=== PATIENT | female | born 1930 | race Caucasian/White ===

== ENCOUNTER 2016-12-18 20:23 | Inpatient (IN) | payer MEDICARE, BC ==
[~2016-12-18] VITALS: Ht 139.7 cm; Wt 42.5 kg
[~2016-12-18 20:23] MED LIST: ALLEGRA60 MG PO; COREG 6.256.25 MG/TA PO; COZAAR 25MG25 MG/TAB PO; LASIX 40MG TABL40 MG PO; PREMARIN 0.60.625 MG PO; PRILOSEC 20MG20 MG PO
[2016-12-18] MEDS ORDERED: FERRO-TIME325 MG PO (23:07)
[2016-12-18] MEDS ORDERED: SEROQUEL 2525 MG/TAB PO (23:09)
[2016-12-18 23:10] LABS: BASO % 0.2 % (0.0-2.0); EOS % 0.1 % (0-4.0); GRAN # 9.9 (1.4-6.5); GRAN % 76.3 % (42.2-75.2); LYMPH # 2.3 (1.2-3.4); LYMPH % 17.5 % (20.0-51.0); MEAN CELL VOLUME 92 fl (80.0-100.0); MEAN CORPUSCULAR HGB CONC 31 g/dl (33.0-37.0); MEAN PLATELET VOLUME 10.7 fl (7.4-10.4); MONO # 0.7 (0.1-0.6); MONO % 5.6 % (1.7-9.3); PLATELET COUNT 202 K/mm3 (130-400); RED BLOOD COUNT 3.87 M/mm3 (4.10-5.30); REDCELL DISTRIBUTION WIDTH-CV 14.6 % (11.5-14.5); WHITE BLOOD COUNT 12.9 K/mm3 (4.8-10.8)
[2016-12-18] MEDS ORDERED: ZYPREXA7.5 MG PO ×2 (23:11)
[2016-12-18 23:12] LABS: HEMATOCRIT 35.7 % (37.0-47.0); HEMOGLOBIN 11.1 g/dl (12.5-16.0); MEAN CORPUSCULAR HEMOGLOBIN 29 pg (27.0-31.0)
[2016-12-18 23:15] LABS: INR 1.1 (0.8-3.0); PROTHROMBIN TIME 11.9 SECONDS (9.7-12.8)
[2016-12-18] MEDS ORDERED: DULCOLAX STOOL100 MG PO (23:15)
[2016-12-18] MEDS ORDERED: SENNO8.6 MG PO (23:17)
[2016-12-18] MEDS ORDERED: NORCO 325 MG-51 TAB PO ×2 (23:18→23:24)
[2016-12-18] MEDS ORDERED: ATIVAN 0.50.5 MG/TAB PO (23:20)
[2016-12-18 23:21] LABS: ADJUSTED CALCIUM 8.9 mg/dL (8.4-10.2); ALBUMIN 3.7 gm/dL (3.5-5.0); BILIRUBIN,TOTAL 0.8 mg/dL (0.0-1.0); CALCIUM 8.7 mg/dL (8.4-10.2); CREATININE, serum 1.25 mg/dL (0.52-1.25); POTASSIUM 5.1 mmol/L (3.4-5.0); TOTAL PROTEIN 7.4 gm/dL (6.4-8.2)
[2016-12-18] MEDS ORDERED: DULCOLAX S10 MG/SUPP RC (23:22)
[2016-12-18] MEDS ORDERED: MILK OF MA1200 MG/5 PO (23:23)
[2016-12-18] MEDS ORDERED: ROXICODONE 55 MG/TAB PO (23:25)
[2016-12-18] MEDS ORDERED: TYLENOL 325MG325 MG PO (23:26)
[2016-12-19] VITALS (17 sets, daily range): BP systolic 134–182; BP diastolic 37–91; PULSE 62–80; TEMP 96.8–98.7
[2016-12-19 00:15] LABS: PH 5 (5-8); SQUAMOUS EPITHELIAL 0-2 /hpf; URINE APPEARANCE Clear; URINE BACTERIA None Seen /hpf; URINE BILIRUBIN Negative (NEGATIVE); URINE BLOOD Negative (NEGATIVE); URINE COLOR Yellow; URINE GLUCOSE Negative (NEGATIVE); URINE KETONE Trace (NEGATIVE); URINE RBC 0-2 /hpf; URINE UROBILINOGEN Negative (NEGATIVE); URINE WBC 0-2 /hpf
[2016-12-20] VITALS (7 sets, daily range): BP systolic 114–152; BP diastolic 43–68; PULSE 66–95; TEMP 97.7–98.5
[2016-12-20 07:09] LABS: MEAN CELL VOLUME 92 fl (80.0-100.0); MEAN CORPUSCULAR HGB CONC 32 g/dl (33.0-37.0); MEAN PLATELET VOLUME 11.3 fl (7.4-10.4); PLATELET COUNT 171 K/mm3 (130-400); RED BLOOD COUNT 3.18 M/mm3 (4.10-5.30); REDCELL DISTRIBUTION WIDTH-CV 14.5 % (11.5-14.5); WHITE BLOOD COUNT 13.9 K/mm3 (4.8-10.8)
[2016-12-20 07:22] LABS: CALCIUM 7.9 mg/dL (8.4-10.2); CREATININE, serum 1.08 mg/dL (0.52-1.25); MAGNESIUM 2.4 mg/dL (1.6-2.3); PHOSPHOROUS 3.3 mg/dL (2.5-4.5); POTASSIUM 4.3 mmol/L (3.4-5.0)
[2016-12-20 07:53] LABS: HEMATOCRIT 29.1 % (37.0-47.0); HEMOGLOBIN 9.2 g/dl (12.5-16.0); MEAN CORPUSCULAR HEMOGLOBIN 29 pg (27.0-31.0)
[2016-12-21] VITALS (8 sets, daily range): BP systolic 93–160; BP diastolic 29–60; PULSE 44–89; TEMP 97.6–98.3
[2016-12-21 08:40] LABS: BASO % 0.2 % (0.0-2.0); EOS % 0.1 % (0-4.0); GRAN # 15.6 (1.4-6.5); GRAN % 81.5 % (42.2-75.2); LYMPH # 1.9 (1.2-3.4); LYMPH % 9.8 % (20.0-51.0); MEAN CELL VOLUME 91 fl (80.0-100.0); MEAN CORPUSCULAR HGB CONC 32 g/dl (33.0-37.0); MONO # 1.4 (0.1-0.6); MONO % 7.4 % (1.7-9.3); PLATELET COUNT 151 K/mm3 (130-400); RED BLOOD COUNT 3.01 M/mm3 (4.10-5.30); REDCELL DISTRIBUTION WIDTH-CV 14.6 % (11.5-14.5); WHITE BLOOD COUNT 19.2 K/mm3 (4.8-10.8)
[2016-12-21 08:41] LABS: HEMATOCRIT 27.5 % (37.0-47.0); HEMOGLOBIN 8.7 g/dl (12.5-16.0); MEAN CORPUSCULAR HEMOGLOBIN 29 pg (27.0-31.0)
[2016-12-21 22:44] LABS: PH 5 (5-8); SQUAMOUS EPITHELIAL 0-2 /hpf; URINE APPEARANCE Hazy; URINE BACTERIA Rare /hpf; URINE BILIRUBIN Negative (NEGATIVE); URINE BLOOD Negative (NEGATIVE); URINE COLOR Yellow; URINE GLUCOSE Negative (NEGATIVE); URINE KETONE Negative (NEGATIVE); URINE UROBILINOGEN Negative (NEGATIVE); URINE WBC 0-2 /hpf
[2016-12-22 00:22] VITALS: BP 109/49; PULSE 64; TEMP 98.7
[2016-12-22 06:03] VITALS: BP 159/40; PULSE 66; TEMP 97.6
[2016-12-22 07:30] VITALS: BP 154/39; PULSE 63; TEMP 98.7
[2016-12-22 08:30] LABS: HEMATOCRIT 26.3 % (37.0-47.0); HEMOGLOBIN 8.3 g/dl (12.5-16.0)
[2016-12-22 10:13] VITALS: BP 135/31; PULSE 66; TEMP 97.8
[2016-12-22] MEDS ORDERED: PRINIVIL2.5 MG PO (10:17)
[2016-12-22] MEDS ORDERED: XARELTO10 MG PO (10:17)
[2016-12-22 10:21] LABS: BASO % 0.2 % (0.0-2.0); EOS # 0.1 (0.0-0.7); EOS % 0.4 % (0-4.0); GRAN # 11.3 (1.4-6.5); GRAN % 79.9 % (42.2-75.2); LYMPH # 1.7 (1.2-3.4); LYMPH % 12.2 % (20.0-51.0); MEAN CELL VOLUME 93 fl (80.0-100.0); MEAN CORPUSCULAR HGB CONC 31 g/dl (33.0-37.0); MEAN PLATELET VOLUME 11.8 fl (7.4-10.4); MONO % 6.9 % (1.7-9.3); PLATELET COUNT 153 K/mm3 (130-400); RED BLOOD COUNT 2.87 M/mm3 (4.10-5.30); REDCELL DISTRIBUTION WIDTH-CV 14.3 % (11.5-14.5); WHITE BLOOD COUNT 14.1 K/mm3 (4.8-10.8)
[2016-12-22 10:22] LABS: HEMATOCRIT 26.7 % (37.0-47.0); HEMOGLOBIN 8.3 g/dl (12.5-16.0); MEAN CORPUSCULAR HEMOGLOBIN 29 pg (27.0-31.0)
[2016-12-22 12:24] VITALS: BP 135/31; PULSE 66; TEMP 97.8
== END 2016-12-22 14:00 | DRG 480 ==
LOC: SURG 20:23
PROVIDERS: Family Medicine; Internal Medicine; Nurse Practitioner Family; Orthopaedic Surgery; Physician Assistant
PROC: 0QS606Z Reposition Right Upper Femur with Intramedullary Internal Fixation Device, Open Approach (ICD-10-PCS; principal; 2016-12-19 12:00)
DX: M80.051A Age-related osteoporosis with current pathological fracture, right femur, initial encounter for fracture (principal); E43 Unspecified severe protein-calorie malnutrition; F02.81 Dementia in other diseases classified elsewhere, unspecified severity, with behavioral disturbance; I13.0 Hypertensive heart and chronic kidney disease with heart failure and stage 1 through stage 4 chronic kidney disease, or unspecified chronic kidney disease; N18.4 Chronic kidney disease, stage 4 (severe); I42.0 Dilated cardiomyopathy; E87.0 Hyperosmolality and hypernatremia; I50.32 Chronic diastolic (congestive) heart failure; Z66 Do not resuscitate; W18.30XA Fall on same level, unspecified, initial encounter; I25.10 Atherosclerotic heart disease of native coronary artery without angina pectoris; G30.9 Alzheimer's disease, unspecified; Z87.891 Personal history of nicotine dependence; Z95.0 Presence of cardiac pacemaker; E87.5 Hyperkalemia; D63.1 Anemia in chronic kidney disease; I08.3 Combined rheumatic disorders of mitral, aortic and tricuspid valves
CPT/HCPCS: 99223-AI; 99232-AI; 99233-AI; 99239; C1713; J0360; J0690; J2270; J7030